=== PATIENT | female | born 1980 | race Caucasian/White ===

== ENCOUNTER 2025-04-26 17:03 | Emergency (ER) | payer OTHER, SELFPAY ==
[2025-04-26 17:05] VITALS: BP 130/93; PULSE 86; TEMP 36.8; O2SAT 98; BMI 26.5
--- NOTE | 2025-04-26 17:19 | ED.GENADUL1 ---
HPI HPI - General Adult General Chief complaint: Skin/Abscess/Foreign Body Stated complaint: NIKITAIDON NATE Time Seen by Provider: 04/26/25 17:05 Source: patient Mode of arrival: walk-in History of Present Illness HPI narrative: 44-year-old female presented to the emergency department for pruritic rash. It is on her arms and the right side of her face and neck. She developed this this past week after working in the yard and she went to an urgent care center a few days ago and she was diagnosed with poison nate dermatitis. She was given a shot of steroid and has been taking 40 mg of prednisone a day. She has 2 more days left. The itching continues and the rash has not gotten much better. Related Data Home Medications ?Medication ?Instructions ?Recorded ?Confirmed cholecalciferol (vitamin D3) 125 04/26/25 mcg (5,000 unit) capsule fluoxetine 10 mg capsule mg 04/26/25 lisinopril 5 mg tablet mg 04/26/25 prednisone 20 mg tablet mg 04/26/25 Previous Rx's ?Medication ?Instructions ?Recorded hydroxyzine HCl 25 mg tablet 25 mg PO TID PRN itching #20 tabs 04/26/25 prednisone 10 mg tablet See Rx Instructions .Route 04/26/25 .COMPLEX #30 tabs Allergies Allergy/AdvReac Type Severity Reaction Status Date / Time No Known Drug Allergies Allergy Verified 04/26/25 17:09 Review of Systems ROS Narrative A ten point review of systems is negative except as noted above. PFSH PFSH Social History Little interest or pleasure in doing things: not at all Feeling down, depressed, or hopeless: not at all Exam Narrative Exam Narrative: Nurses note and vital signs reviewed and patient is not hypoxic. General:The patient appears well and in no apparent distress.Patient is resting comfortably on cart. Skin:Warm, dry, no pallor noted.There is erythematous raised rash consistent with poison nate on both forearms and on the right side of her face and her neck. Head:Normocephalic, atraumatic Eye: Normal conjunctiva, no drainage Ears, Nose, Mouth, and Throat: oral mucosa is moist. Nares patent. Cardiovascular:Regular Rate and Rhythm Respiratory:Patient is in no distress, no accessory muscle use Back:non-tender GI: Soft and nontender Musculoskeletal: Joints have full range of motion Neurological: Awake and alert Psychiatric:Cooperative Constitutional Vital Signs, click to edit/add: Last Vital Signs Temp 98.3 F 04/26/25 17:05 Pulse 86 04/26/25 17:05 Resp 16 04/26/25 17:05 BP 130/93 H 04/26/25 17:05 Pulse Ox 98 04/26/25 17:05 O2 Del Method Room Air 04/26/25 17:05 Course Vital Signs Vital signs: Vital Signs Temperature 98.3 F 04/26/25 17:05 Pulse Rate 86 04/26/25 17:05 Respiratory Rate 16 04/26/25 17:05 Blood Pressure 130/93 H 04/26/25 17:05 Pulse Oximetry 98 04/26/25 17:05 Oxygen Delivery Method Room Air 04/26/25 17:05 Temperature 98.3 F 04/26/25 17:05 Pulse Rate 86 04/26/25 17:05 Respiratory Rate 16 04/26/25 17:05 Blood Pressure 130/93 H 04/26/25 17:05 Pulse Oximetry 98 04/26/25 17:05 Oxygen Delivery Method Room Air 04/26/25 17:05 Medical Decision Making [facility] Narrative Medical decision making narrative: My clinical impression is that she has poison nate dermatitis. She was given IM Solu-Medrol and prescribed a tapering dose of prednisone as well as Atarax. Treatment diagnosis and follow-up were discussed with the patient. Differential Diagnosis Differential Diagnosis: Poison nate dermatitis, contact dermatitis Discharge Plan Discharge Chief Complaint: Skin/Abscess/Foreign Body Clinical Impression: Poison nate dermatitis Patient Disposition: Home, Self-Care Time of Disposition Decision: 17:17 Condition: Good Mode of Transportation: Private Vehicle Prescriptions / Home Meds: New prednisone 10 mg tablet See Rx Instructions .ROUTE .COMPLEX Qty: 30 0RF Rx Instructions: 4 by mouth daily for three days then 3 by mouth daily for three days then 2 by mouth daily for three days then 1 by mouth daily for three days hydroxyzine HCl 25 mg tablet 25 mg PO TID PRN (Reason: itching) Qty: 20 0RF No Action prednisone 20 mg tablet fluoxetine 10 mg capsule lisinopril 5 mg tablet cholecalciferol (vitamin D3) 125 mcg (5,000 unit) capsule Print Language: Occitan Instructions: Poison Nate (ED) Additional Instructions: Begin the steroid that I prescribed you the day after you finish the doses given to you by the urgent care center. Be cautious of the hydroxyzine medication, it can make you drowsy. [id number] Zanfel for itching.
[2025-04-26] MEDS: METHYLPREDNISOLONE SOD SUCC PF 125 MG/2 ML VIAL 250 MG IM (17:36)
== END 2025-04-26 17:40 | disposition home or self-care (01) ==
LOC: ER 17:23
PROVIDERS: Emergency Provider Emergency Medicine; PCP Nurse Practitioner
DX: L23.7 Allergic contact dermatitis due to plants, except food (principal)
CPT/HCPCS: 96372; 99284; J2919